=== PATIENT | male | born 1945 | race Caucasian/White ===

== ENCOUNTER → 2016-07-24 | Outpatient (CLI) | payer MEDICARE ==
[2016-07-24 09:32] LABS: Basophils % (A) 1 %; CH 32.6; CHCM 34.5; Eosinophils # (A) 0.2 k/uL (0-0.7); Eosinophils % (A) 2 %; HCT 43.2 % (39.0-53.0); HDW 2.94; HGB 14.5 gm/dL (13.0-17.5); Luc # (Auto) 0.22; Luc % (Auto) 3; Lymphocytes # (A) 1.6 k/uL (1.0-4.8); Lymphocytes % (A) 23 %; MCHC 33.7 g/dL (31.0-37.0); MCV 94.9 fL (80.0-100.0); Monocytes # (A) 0.5 k/uL (0-1.0); Monocytes % (A) 7 %; Neutrophils # (A) 4.3 k/uL (1.3-7.7); Neutrophils % (A) 63 %; RBC 4.55 m/uL (4.30-5.90); RDW 13.3 % (11.5-15.5); WBC 6.8 k/uL (3.8-10.6); WBC (Perox) 7.13
[2016-07-24 10:55] LABS: ALT 42 U/L (21-72); AST 34 U/L (17-59); Alkaline Phosphatase 66 U/L (38-126); Anion Gap 11 mmol/L; Blood Urea Nitrogen 23 mg/dL (9-20); Calcium 9.3 mg/dL (8.4-10.2); Carbon Dioxide 27 mmol/L (22-30); Chloride 104 mmol/L (98-107); Cholesterol 169 mg/dL (<200); Glucose 109 mg/dL (74-99); HDL Cholesterol 65 mg/dL (40-60); Non-African American GFR(MDRD) >60 (>60 ml/min/1.73 sqM); Potassium 3.8 mmol/L (3.5-5.1); Sodium 142 mmol/L (137-145); Total Bilirubin 1.2 mg/dL (0.2-1.3); Total Protein 7.3 g/dL (6.3-8.2); Triglycerides 87 mg/dL (<150)
== END | disposition home or self-care (01) ==
LOC: LABWHC1 08:37
PROVIDERS: ATTEND Internal Medicine
DX: E78.2 Mixed hyperlipidemia (principal); I10 Essential (primary) hypertension; Z12.5 Encounter for screening for malignant neoplasm of prostate
CPT/HCPCS: 80061; 80053; 85025; 36415; G0103

== ENCOUNTER → 2017-01-16 | Outpatient (CLI) | payer MEDICARE ==
[2017-01-16 08:18] LABS: Basophils % (A) 1 %; CH 32.5; CHCM 34.7; Eosinophils # (A) 0.3 k/uL (0-0.7); Eosinophils % (A) 3 %; HCT 41.7 % (39.0-53.0); HDW 2.84; HGB 14.2 gm/dL (13.0-17.5); Luc # (Auto) 0.19; Luc % (Auto) 2; Lymphocytes # (A) 1.9 k/uL (1.0-4.8); Lymphocytes % (A) 23 %; MCH 32.1 pg (25.0-35.0); MCHC 34.1 g/dL (31.0-37.0); MCV 94.1 fL (80.0-100.0); Mean Platelet Volume 7.7; Monocytes # (A) 0.6 k/uL (0-1.0); Monocytes % (A) 8 %; Neutrophils # (A) 5.2 k/uL (1.3-7.7); Neutrophils % (A) 63 %; RBC 4.44 m/uL (4.30-5.90); RDW 13.8 % (11.5-15.5); WBC 8.3 k/uL (3.8-10.6); WBC (Perox) 7.67
[2017-01-16 10:12] LABS: ALT 35 U/L (21-72); AST 25 U/L (17-59); Alkaline Phosphatase 67 U/L (38-126); Anion Gap 10 mmol/L; Blood Urea Nitrogen 26 mg/dL (9-20); Calcium 9.4 mg/dL (8.4-10.2); Carbon Dioxide 28 mmol/L (22-30); Chloride 104 mmol/L (98-107); Cholesterol 169 mg/dL (<200); Glucose 105 mg/dL (74-99); HDL Cholesterol 55 mg/dL (40-60); Non-African American GFR(MDRD) >60 (>60 ml/min/1.73 sqM); Potassium 3.6 mmol/L (3.5-5.1); Sodium 142 mmol/L (137-145); Total Bilirubin 0.6 mg/dL (0.2-1.3); Total Protein 6.8 g/dL (6.3-8.2); Triglycerides 123 mg/dL (<150)
[2017-01-16 11:37] LABS: Hemoglobin A1C 6.1 % (4.2-6.1)
== END | disposition home or self-care (01) ==
LOC: LABWHC1 06:48
PROVIDERS: ATTEND Internal Medicine
DX: I10 Essential (primary) hypertension (principal); E78.2 Mixed hyperlipidemia; R73.01 Impaired fasting glucose; Z12.5 Encounter for screening for malignant neoplasm of prostate
CPT/HCPCS: 80061; 80053; 83036; 85025; 36415; G0103

== ENCOUNTER → 2017-07-24 | Outpatient (CLI) | payer MEDICARE ==
[2017-07-24 07:32] LABS: ALT 31 U/L (21-72); AST 29 U/L (17-59); Albumin 4.1 g/dL (3.5-5.0); Alkaline Phosphatase 77 U/L (38-126); Anion Gap 9 mmol/L; Blood Urea Nitrogen 18 mg/dL (9-20); Calcium 9.5 mg/dL (8.4-10.2); Carbon Dioxide 34 mmol/L (22-30); Chloride 100 mmol/L (98-107); Cholesterol 170 mg/dL (<200); Glucose 108 mg/dL (74-99); HDL Cholesterol 53 mg/dL (40-60); LDL Cholesterol,Calculated 98 mg/dL (0-99); Potassium 3.8 mmol/L (3.5-5.1); Sodium 143 mmol/L (137-145); Total Bilirubin 0.7 mg/dL (0.2-1.3); Total Protein 7.2 g/dL (6.3-8.2); Triglycerides 96 mg/dL (<150)
== END | disposition home or self-care (01) ==
LOC: LABWHC1 06:48
PROVIDERS: ATTEND Internal Medicine
DX: E78.2 Mixed hyperlipidemia (principal); I10 Essential (primary) hypertension
CPT/HCPCS: 36415; 80053; 80061

== ENCOUNTER 2023-04-27 02:01 | Inpatient (IN) | payer MEDICARE ==
--- NOTE | 2023-04-27 02:13 | ED ---
Chest Pain HPI - General Chief Complaint: Chest Pain Stated Complaint: Chest Pain Time Seen by Provider: 04/27/23 02:12 Source: family, RN notes reviewed, old records reviewed Mode of arrival: ambulatory Limitations: no limitations - History of Present Illness Initial Comments: This is a 78-year-old male to the emergency department for evaluation. Patient has history of high blood pressure high cholesterol, patient comes in for evaluation of chest pain today. Patient has had episodic chest pain but this is been more persistent tonight. No shortness of breath no other significant symptoms or complaints. Patient is nursing travel history or sick contacts. He does feel weak and dizzy with persistent chest pain here in the ER at times feels like he is having some sweating episode MD Complaint: chest pain -: hour(s) Pain Location: substernal, left chest Pain Radiation: none Severity: moderate Severity scale (1-10): 4 Quality: tightness, heaviness Consistency: intermittent Improves With: nothing Worsens With: nothing Anginal Symptoms: dyspnea, sense of impending doom Other Symptoms: palpitations Treatments Prior to Arrival: none - Related Data Home Medications Medication Instructions Recorded Confirmed Aspirin 81 mg PO DAILY 02/07/14 04/27/23 Multivitamin [Men's Multi-Vitamin] 1 tab PO DAILY 02/07/14 04/27/23 Rosuvastatin [Crestor] 20 mg PO DAILY 04/27/23 04/27/23 Previous Rx's Medication Instructions Recorded Apixaban [Eliquis] 5 mg PO BID #60 tab 04/29/23 Clopidogrel [Plavix] 75 mg PO DAILY #90 tab 04/29/23 Metoprolol Tartrate [Lopressor] 25 mg PO BID #60 tab 04/29/23 Nitroglycerin Sl Tabs [Nitrostat] 0.4 mg SUBLINGUAL Q5M PRN #100 tab 04/29/23 Allergies Allergy/AdvReac Type Severity Reaction Status Date / Time No Known Allergies Allergy Verified 04/27/23 07:00 Review of Systems ROS Statement: Those systems with pertinent positive or pertinent negative responses have been documented in the HPI. ROS Other: All systems not noted in ROS Statement are negative. Past Medical History Past Medical History: Hyperlipidemia, Hypertension History of Any Multi-Drug Resistant Organisms: None Reported Past Surgical History: Cholecystectomy Past Anesthesia/Blood Transfusion Reactions: No Reported Reaction Past Psychological History: No Psychological Hx Reported Smoking Status: Never smoker Past Alcohol Use History: Rare Past Drug Use History: None Reported General Exam Limitations: no limitations General appearance: alert, in no apparent distress, anxious Head exam: Present: atraumatic, normocephalic, normal inspection Eye exam: Present: normal appearance, PERRL, EOMI. Absent: scleral icterus, conjunctival injection, periorbital swelling ENT exam: Present: normal exam, mucous membranes moist Neck exam: Present: normal inspection. Absent: tenderness, meningismus, lymphadenopathy Respiratory exam: Present: normal lung sounds bilaterally. Absent: respiratory distress, wheezes, rales, rhonchi, stridor Cardiovascular Exam: Present: regular rate, normal rhythm, normal heart sounds. Absent: systolic murmur, diastolic murmur, rubs, gallop, clicks GI/Abdominal exam: Present: soft, normal bowel sounds. Absent: distended, tenderness, guarding, rebound, rigid Extremities exam: Present: normal inspection, full ROM, normal capillary refill. Absent: tenderness, pedal edema, joint swelling, calf tenderness Back exam: Present: normal inspection Neurological exam: Present: alert, oriented X3, CN II-XII intact Psychiatric exam: Present: normal affect, normal mood Skin exam: Present: warm, dry, intact, normal color. Absent: rash Course Vital Signs 04/27/23 04/27/23 04/27/23 02:05 02:25 03:02 Temperature 98.6 F Pulse Rate 94 87 82 Respiratory 20 18 18 Rate Blood Pressure 161/76 132/70 131/65 O2 Sat by Pulse 96 97 93 L Oximetry 04/27/23 04/27/23 04/27/23 04:00 05:15 08:31 Temperature Pulse Rate 80 78 78 Respiratory 18 16 18 Rate Blood Pressure 135/69 128/62 127/72 O2 Sat by Pulse 93 L 95 99 Oximetry - Reevaluation(s) Reevaluation #1: 04/27/23 05:45 Medical record is reviewed Reevaluation #2: 04/27/23 05:45 Patient symptoms remain, patient still having episodic chest pain Patient did have increasing dizziness and lightheadedness and near-syncope, at that time he was diaphoretic here in the ER Reevaluation #3: 04/27/23 05:45 Patient informed results and questions answered 04/27/23 06:51 Studies Chest x-ray and CT chest interpreted by me is negative for acute disease Reevaluation #4: 04/27/23 04:54 Was pt. sent in by a medical professional or institution (BRANDNO Garíca, ACTIVITY MANAGER, urgent care, hospital, or shelter...) When possible be specific @ -no Did you speak to anyone other than the patient for history (EMS, parent, family, police, friend...)? What history was obtained from this source @ -no Did you review nursing and triage notes (agree or disagree)? Why? @ -agree Are old charts reviewed (outside hosp., previous admission, EMS record, old EKG, old radiological studies, urgent care reports/EKG's, shelter records)? Report findings @ -yes Differential Diagnosis (chest pain, altered mental status, abdominal pain women, abdominal pain men, vaginal bleeding, weakness, fever, dyspnea, syncope, headache, dizziness, GI bleed, back pain, seizure, CVA, palpatations, mental health, musculoskeletal)? @ -prior EKG interpreted by me (3pts min.). @ -yes X-rays interpreted by me (1pt min.). @ -yes CT interpreted by me (1pt min.). @ -yes U/S interpreted by me (1pt. min.). @ -no What testing was considered but not performed or refused? (CT, X-rays, U/S, labs)? Why? @ -none What meds were considered but not given or refused? Why? @ -none Did you discuss the management of the patient with other professionals (professionals i.e. BRANDON García, ACTIVITY MANAGER, lab, RT, psych nurse, social science teacher, video game designer, teacher, contracts officer, watch caser)? Give summary @ -no Was smoking cessation discussed for >3mins.? @ -no Was critical care preformed (if so, how long)? @ -yes31 Were there social determinants of health that impacted care today? How? (Homelessness, low income, unemployed, alcoholism, drug addiction, transportation, low edu. Level, literacy, decrease access to med. care, halfway, rehab)? @ -none Was there de-escalation of care discussed even if they declined (Discuss DNR or withdrawal of care, Hospice)? DNR status @ -no What co-morbidities impacted this encounter? (DM, HTN, Smoking, COPD, CAD, Cancer, CVA, ARF, Chemo, Hep., AIDS, mental health diagnosis, sleep apnea, morbid obesity)? @ -none Was patient admitted / discharged? Hospital course, mention meds given and route, prescriptions, significant lab abnormalities, going to OR and other pertinent info. @ - 78 male to the emergency department for evaluation of chest pain with a near syncopal event. Patient has normal imaging and testing here in the ER and can will be admitted for cardiology evaluation. Patient did have a near syncope episode with changing chest pain character here in the ER but normal labs and EKGs here in the ER Admitted Undiagnosed new problem with uncertain prognosis? @ -no Drug Therapy requiring intensive monitoring for toxicity (Heparin, Nitro, Insulin, Cardizem)? @ -no Were any procedures done? @ -no Diagnosis/symptom? @ -Chest pain Acute, or Chronic, or Acute on Chronic? @ -Acute Uncomplicated (without systemic symptoms) or Complicated (systemic symptoms)? @ -Complicated Side effects of treatment? @ -no Exacerbation, Progression, or Severe Exacerbation? @ -exacerbation Poses a threat to life or bodily function? How? (Chest pain, [place], [place], pneumonia, PE, COPD, DKA, ARF, appy, cholecystitis, CVA, Diverticulitis, Homicidal, Suicidal, threat to staff... and all critical care pts) @ -yes possibility of acute coronary syndrome Reevaluation #5: 04/27/23 04:54 Differential Chest Pain: Stable Angina, Unstable Angina, STEMI, NSTEMI Aortic Dissection, Pneumothorax, Musculoskeletal, Esophageal Spasm GERD, Cholecystitis, Pancreatitis, Zoster, this is not meant to be an all-inclusive list. - Consultations Consultation #1: Spoke with nai who agrees to admit this patient Chest Pain MDM - MDM 78 male to the emergency department for evaluation of chest pain with a near syncopal event. Patient has normal imaging and testing here in the ER and can will be admitted for cardiology evaluation. Patient did have a near syncope episode with changing chest pain character here in the ER but normal labs and EKGs here in the ER Critical Care Time Critical Care Time: Yes Total Critical Care Time: 31 Disposition Clinical Impression: Chest pain, Near syncope Disposition: ADMITTED IP TO THIS HOSP Condition: Undetermined Is patient prescribed a controlled substance at d/c from ED?: No Time of Disposition: 06:30
[2023-04-27 03:01] LABS: Basophils % (A) 0 %; Eosinophils # (A) 0.2 k/uL (0-0.7); Eosinophils % (A) 1 %; HCT 42.4 % (39.0-53.0); HGB 14.8 gm/dL (13.0-17.5); Lymphocytes # (A) 2.1 k/uL (1.0-4.8); Lymphocytes % (A) 15 %; MCH 32.4 pg (25.0-35.0); MCHC 34.9 g/dL (31.0-37.0); MCV 92.9 fL (80.0-100.0); Mean Platelet Volume 8.3; Monocytes # (A) 1.2 k/uL (0-1.0); Monocytes % (A) 8 %; Neutrophils # (A) 10.3 k/uL (1.3-7.7); Neutrophils % (A) 73 %; Platelet Count 189 k/uL (150-450); RBC 4.56 m/uL (4.30-5.90); RDW 13.5 % (11.5-15.5); WBC 14.1 k/uL (3.8-10.6)
[2023-04-27 03:14] LABS: Partial Thromboplastin Time 24.1 sec (22.0-30.0)
[2023-04-27 04:39] LABS: ALT 26 U/L (4-49); AST 37 U/L (17-59); African American GFR (CKD) 84 (>60 ml/min/1.73 sqM); Albumin 4.5 g/dL (3.5-5.0); Alkaline Phosphatase 64 U/L (38-126); Anion Gap 15 mmol/L; Blood Urea Nitrogen 26 mg/dL (9-20); Calcium 9.7 mg/dL (8.4-10.2); Carbon Dioxide 24 mmol/L (22-30); Chloride 99 mmol/L (98-107); Glucose 126 mg/dL (74-99); Magnesium 1.8 mg/dL (1.6-2.3); Non-African American GFR(CKD) 72 (>60 ml/min/1.73 sqM); Potassium 2.8 mmol/L (3.5-5.1); Sodium 138 mmol/L (137-145); Total Bilirubin 1.3 mg/dL (0.2-1.3); Total Protein 7.9 g/dL (6.3-8.2)
[2023-04-27 04:47] LABS: NT-Pro-B-Type Natriuretic Pept 135 pg/mL
--- NOTE | 2023-04-27 05:24 | XR ---
EXAM: XR Chest, 2 Views CLINICAL HISTORY: : Chest Pain TECHNIQUE: Frontal and lateral views of the chest. COMPARISON: No relevant prior studies available. FINDINGS: Lungs: Unremarkable. No infiltration, atelectasis or mass density. Pleural space: Unremarkable. No pneumothorax. No pleural fluid. Heart: Unremarkable. No cardiomegaly. Mediastinum: Unremarkable. Bones/joints: Unremarkable. No acute abnormalities. IMPRESSION: Negative chest x-rays.
[2023-04-27] MEDS ORDERED: ASPIRIN 81 MG PO STA (06:35)
[2023-04-27] MEDS ORDERED: NITROGLYCERIN SL TABS 0.4 MG TAB SUBLINGUAL PRN ×3 (06:35→09:58)
[2023-04-27] MEDS ORDERED: MORPHINE SULFATE 4 MG/ML SYRINGE IV PRN (06:35)
[2023-04-27] MEDS ORDERED: POTASSIUM BICARBONATE/CIT AC 20 MEQ TABLET.EFF PO ONE ×2 (06:41→10:30)
--- NOTE | 2023-04-27 06:43 | CT ---
EXAM: CT Angiography Chest With Intravenous Contrast CLINICAL HISTORY: PE TECHNIQUE: Axial computed tomographic angiography images of the chest with intravenous contrast. CTDI is 28.97 mGy and DLP is 401 mGy-cm. This CT exam was performed using one or more of the following dose reduction techniques: automated exposure control, adjustment of the mA and/or kV according to patient size, and/or use of iterative reconstruction technique. MIP reconstructed images were created and reviewed. COMPARISON: No relevant prior studies available. FINDINGS: Pulmonary arteries: Unremarkable. No pulmonary embolism. Aorta: No acute findings. No thoracic aortic aneurysm. Lungs: Mild areas of subsegmental atelectasis in the right lower lobe. The lungs are otherwise clear. No mass. Pleural space: Unremarkable. No significant effusion. No pneumothorax. Heart: Unremarkable. No cardiomegaly. No significant pericardial effusion. No evidence of RV dysfunction. Mediastinum: Small hiatus hernia. Bones/joints: No acute fracture. No dislocation. Soft tissues: Unremarkable. Lymph nodes: Unremarkable. No enlarged lymph nodes. IMPRESSION: No acute findings in the visualized arteries of the chest. No pulmonary emboli.
[2023-04-27] MEDS ORDERED: HEPARIN SODIUM,PORCINE (1 ML) 2,500 UNIT in SODIUM CHLORIDE 0.9% 250 ML IRRIGATION PRN (07:00)
[2023-04-27] MEDS ORDERED: HEPARIN SODIUM,PORCINE 10,000 UNIT in SODIUM CHLORIDE 0.9% 1,000 ML IRRIGATION PRN (07:00)
[2023-04-27] MEDS ORDERED: ACETAMINOPHEN TAB 500 MG TAB PO STA (07:08)
[2023-04-27] MEDS ORDERED: POTASSIUM CHLORIDE 20 MEQ in WATER FOR INJECTION 1 100ML.BAG IVPB STA (07:25)
[2023-04-27] MEDS ORDERED: HYDROcodone/APAP 5-325MG 1 EACH TAB PO PRN (07:53)
[2023-04-27] MEDS ORDERED: CALCIUM CARBONATE 500 MG CHEWABLE PO PRN (07:53)
[2023-04-27] MEDS ORDERED: MELATONIN 3 MG TABLET PO PRN (07:53)
[2023-04-27] MEDS ORDERED: ACETAMINOPHEN TAB 325 MG TAB PO PRN (07:53)
[2023-04-27] MEDS ORDERED: ONDANSETRON 4 MG/2 ML VIAL IVP PRN (07:53)
[2023-04-27] MEDS ORDERED: NALOXONE 0.4 MG/ML 1 ML VIAL IVP PRN (07:53)
--- NOTE | 2023-04-27 07:59 | P.HPIM ---
History of Present Illness H&P Date: 04/27/23 Patient is a 78-year-old male with a history of hypertension and dyslipidemia who presented to the emergency department with complaints of chest pain. In the emergency department he underwent an extensive evaluation. On arrival he was hypertensive with a blood pressure 161/76. Labs in the emergency department included CBC, coags, d-dimer, BMP, liver enzymes, magnesium, troponin, and B and P which are remarkable for potassium 2.8, BUN 26, glucose 126, magnesium 1.8. Initial troponin was negative at less than 0.012. Chest x-ray showed no acute process. CT of the chest revealed no pulmonary embolism. He was given a dose of aspiring and tylenol and arrangements were made for admission. Patient seen and examined at bedside. Retrosternal chest pain with some radiation into the neck, no shortness of breath, no radiation into the arms, no nausea, no shortness of breath, no nausea. Chest pain started at 5 pm last night, he was unable to sleep due to the pain. Pain was constant from 5 pm until received tylenol given here. Today in the ED he was relaxing and then got a little woozy, and diaphoretic, he was still having chest pain at that time. Stress test in the past about 6-7 years ago. No hx of heart cath. His dad at 48 with a heart attack. No other family hx of heart disease. He works out 3 times weekly a [email or web address] without chest pain. Does not use a cane or a walker. Vital signs reviewed General: nontoxic, no distress, appears at stated age Derm: warm, dry Eyes: EOMI, no lid lag, anicteric sclera, pupils equal round reactive to light ENT: Nose and ears atraumatic, no thrush, no pharyngeal erythema Cardiovascular: S1S2 reg, no murmur, positive posterior tibial pulse bilateral, no edema Lungs: clear to auscultation bilateral, no rhonchi, no rales, no wheeze, no accessory muscle use Abdominal: soft, nontender to palpation, no guarding, no appreciable organomegaly, normal bowel sounds Ext: no gross muscle atrophy, muscle strength 5 out of 5 in all 4 extremities, no contractures Neuro: CN II-XII grossly intact, no focal neuro deficits, Psych: Alert, oriented, appropriate affect Assessment/Plan: Chest pain with abnormal EKG HTN HLD - Trend Troponin - ASA 82 mg daily, crestor 20 mg daily - tele - await cardio consult - hold atenolol/chlortahidone this AM incase stress test is indicated - NPO until seen by cardio, discussed with nursing. Hypokalemia Hypomagnesemia - K-lyte 40 mEQ PO X 2, Potassium Chloride 20 mEq IV X 1 - Magnesium sulfate 2 g IVPB - repeat BMP at 1300 and in AM Imaging: EKG Initial -normal sinus rhythm at a rate of 90 normal access, normal intervals significant ST segment depression in V3 through V6, leads II.III, aVF EKG most recent- normal sinus rhythm at a rate of 63, normal axis, normal intervals, no significant ST-T wave changes And as per HPI Data Review: As per HPI The patient is placed in observation with an anticipated less than 2 midnight stay for evaluation of Chest Pain. Surrogate decision-maker: DVT prophylaxis: SCDs Discussed with: Nursing Anticipated discharge date: Pending Clinical Course Anticipated discharge place: Pending Clinical Course This dictation was prepared using [employer] voice recognition software. Though every attempt is made to correct errors during dictation some may still exist. Past Medical History Past Medical History: Hyperlipidemia, Hypertension History of Any Multi-Drug Resistant Organisms: None Reported Past Surgical History: Cholecystectomy Past Anesthesia/Blood Transfusion Reactions: No Reported Reaction Past Psychological History: No Psychological Hx Reported Smoking Status: Former smoker (quit before 1999) Past Alcohol Use History: Rare Past Drug Use History: None Reported Medications and Allergies Home Medications Medication Instructions Recorded Confirmed Type Aspirin 81 mg PO DAILY 02/07/14 04/27/23 History Multivitamin [Men's Multi-Vitamin] 1 tab PO DAILY 02/07/14 04/27/23 History Atenolol/Chlorthalidone 1 tab PO DAILY 04/27/23 04/27/23 History [Atenolol/Chlorthalidone 50-25] Rosuvastatin [Crestor] 20 mg PO DAILY 04/27/23 04/27/23 History Allergies Allergy/AdvReac Type Severity Reaction Status Date / Time No Known Allergies Allergy Verified 04/27/23 07:00 Physical Exam Osteopathic Statement: *. No significant issues noted on an osteopathic structural exam other than those noted in the History and Physical/Consult. Vitals: Vital Signs Temp Pulse Resp BP Pulse Ox 04/27/23 05:15 78 16 128/62 95 04/27/23 04:00 80 18 135/69 93 L 04/27/23 03:02 82 18 131/65 93 L 04/27/23 02:25 87 18 132/70 97 04/27/23 02:05 98.6 F 94 20 161/76 96 Intake and Output 04/26/23 04/27/23 04/27/23 22:59 06:59 14:59 Other: Weight 94.801 kg Results CBC & Chem 7: 04/27/23 02:30 04/27/23 02:30 Labs: Abnormal Lab Results - Last 24 Hours (Table) 04/27/23 04/27/23 Range/Units 02:30 02:30 WBC 14.1 H (3.8-10.6) k/uL Neutrophils # 10.3 H (1.3-7.7) k/uL Monocytes # 1.2 H (0-1.0) k/uL Potassium 2.8 L (3.5-5.1) mmol/L BUN 26 H (9-20) mg/dL Glucose 126 H (74-99) mg/dL
[2023-04-27] MEDS ORDERED: ATORVASTATIN 80 MG TAB PO STA (08:15)
[2023-04-27] MEDS ORDERED: ALPRAZolam 0.5 MG TAB PO PRN (08:15)
[2023-04-27] MEDS ORDERED: ASPIRIN 325 MG TAB PO STA (08:15)
[2023-04-27] MEDS ORDERED: ALPRAZolam 0.25 MG TAB PO PRN (08:15)
[2023-04-27] MEDS: SODIUM CHLORIDE 0.9% 1,000 ML IV SCH ×2 (08:25→23:26)
[2023-04-27] MEDS: ATORVASTATIN 40 MG TAB PO SCH (08:27)
--- NOTE | 2023-04-27 08:29 | P.CRDCN ---
History of Present Illness Consult date: 04/27/23 History of present illness: History of Present Illness: The patient is a 78-year-old male with a known history of hypertension, hyperlipidemia and prior history of possible mitral valve prolapse who presented with symptoms of chest discomfort. The discomfort started yesterday at work, persisted was not associated with any other symptoms of dyspnea or dizziness but radiated to the neck. Is usually active physically has no exertional chest discomfort. He denies any dizziness, palpitations or syncope. He has no history of PND, orthopnea or peripheral edema. He is a nonsmoker. He has no history of obstructive CAD but no recent cardiac workup. He has a history of hypertension, hyperlipidemia and prediabetic. In the emergency room his troponin showed no abnormalities. Medications: Atenolol chlorthalidone 5025 milligrams daily, Crestor 20 mg daily, aspirin once a day Review of Systems: Respiratory: No history of asthma, bronchitis or recent cough. GI: No nausea or vomiting . No history of peptic ulcer disease. No recent GI bleed. : No hematuria or dysuria. Nervous System: No stroke or seizure. Physical Examination: 78-year-old male, alert and oriented no apparent distress ,Blood pressure 128/60, Heart rate 70 Head: Normocephalic. Eyes: Sclerae nonicteric. Neck: Good carotid upstroke, no bruit, no jugular venous distention. Lungs: Clear to auscultation. Heart: Regular rate and rhythm, S1-S2, no S3, no rub. Systolic ejection murmur. Abdomen: Soft nontender, positive bowel sounds no organomegaly. Extremities: No edema, intact distal pulses. Labs: Hemoglobin 14.8, WBC 14.1, potassium 2.8, BUN 26, creatinine 1.0. Troponin less than 0.012. NT proBNP 135. Chest x-ray with no infiltrate. CT angiogram of the chest with no evidence of embolic phenomenon EKG: EKG sinus mechanism with ST segment depression in the inferolateral leads that resolved on the EKG done later Impression: 1. Chest discomfort with dynamic ST segment depression and no evidence of enzymatic changes, suggestive of ischemic symptoms 2. History of hypertension 3. History of hyperlipidemia 4. And borderline diabetes Plan: 1. Resume beta heide and statin 2. Replace potassium 3. Obtain an echocardiogram with Doppler 4. Have recommended to proceed with coronary angiography to assess his status and guide his treatment, the risks and the complications were discussed with the patient and his family 5. Depending on the results of his testing further recommendations will be made, thank you for this consult we will follow with you. Past Medical History Past Medical History: Hyperlipidemia, Hypertension History of Any Multi-Drug Resistant Organisms: None Reported Past Surgical History: Cholecystectomy Past Anesthesia/Blood Transfusion Reactions: No Reported Reaction Past Psychological History: No Psychological Hx Reported Smoking Status: Former smoker (quit before 1999) Past Alcohol Use History: Rare Past Drug Use History: None Reported Medications and Allergies Home Medications Medication Instructions Recorded Confirmed Type Aspirin 81 mg PO DAILY 02/07/14 04/27/23 History Multivitamin [Men's Multi-Vitamin] 1 tab PO DAILY 02/07/14 04/27/23 History Atenolol/Chlorthalidone 1 tab PO DAILY 04/27/23 04/27/23 History [Atenolol/Chlorthalidone 50-25] Rosuvastatin [Crestor] 20 mg PO DAILY 04/27/23 04/27/23 History Allergies Allergy/AdvReac Type Severity Reaction Status Date / Time No Known Allergies Allergy Verified 04/27/23 07:00 Physical Exam Vitals: Vital Signs Temp Pulse Resp BP Pulse Ox 04/27/23 05:15 78 16 128/62 95 04/27/23 04:00 80 18 135/69 93 L 04/27/23 03:02 82 18 131/65 93 L 04/27/23 02:25 87 18 132/70 97 04/27/23 02:05 98.6 F 94 20 161/76 96 Intake and Output 04/26/23 04/27/23 04/27/23 22:59 06:59 14:59 Other: Weight 94.801 kg Results 04/27/23 02:30 04/27/23 02:30 Cardiac Enzymes 04/27/23 04/27/23 04/27/23 Range/Units 02:30 02:30 07:16 AST 37 (17-59) U/L Troponin I <0.012 <0.012 (0.000-0.034) ng/mL Coagulation 04/27/23 Range/Units 02:30 PT 11.0 (10.0-12.5) sec APTT 24.1 (22.0-30.0) sec CBC 04/27/23 Range/Units 02:30 WBC 14.1 H (3.8-10.6) k/uL RBC 4.56 (4.30-5.90) m/uL Hgb 14.8 (13.0-17.5) gm/dL Hct 42.4 (39.0-53.0) % Plt Count 189 (150-450) k/uL Comprehensive Metabolic Panel 04/27/23 Range/Units 02:30 Sodium 138 (137-145) mmol/L Potassium 2.8 L (3.5-5.1) mmol/L Chloride 99 (98-107) mmol/L Carbon Dioxide 24 (22-30) mmol/L BUN 26 H (9-20) mg/dL Creatinine 1.00 (0.66-1.25) mg/dL Glucose 126 H (74-99) mg/dL Calcium 9.7 (8.4-10.2) mg/dL AST 37 (17-59) U/L ALT 26 (4-49) U/L Alkaline Phosphatase 64 (38-126) U/L Total Protein 7.9 (6.3-8.2) g/dL Albumin 4.5 (3.5-5.0) g/dL Current Medications Generic Name Dose Route Start Last Admin Trade Name Freq PRN Reason Stop Dose Admin Acetaminophen 650 mg 04/27/23 07:53 Acetaminophen Tab 325 Mg Tab PO Q6HR PRN Mild Pain or Fever > 100.5 Hydrocodone Bitart/Acetaminophen 1 each 04/27/23 07:53 Hydrocodone/Apap 5-325mg 1 Each Tab PO Q4HR PRN Moderate Pain (Scale 4 to 6) Alprazolam 0.25 mg 04/27/23 08:15 Alprazolam 0.25 Mg Tab PO Q6HR PRN Mild Anxiety Alprazolam 0.5 mg 04/27/23 08:15 Alprazolam 0.5 Mg Tab PO Q6HR PRN Moderate Anxiety Aspirin 81 mg 04/28/23 09:00 Aspirin 81 Mg PO DAILY [facility] Atorvastatin Calcium 40 mg 04/27/23 09:00 Atorvastatin 40 Mg Tab PO DAILY SOFIA Calcium Carbonate/Glycine 1,000 mg 04/27/23 07:53 Calcium Carbonate 500 Mg Chewable PO Q4HR PRN Dyspepsia Potassium Chloride 20 meq/ IV 100 mls @ 50 mls/hr 04/27/23 07:25 04/27/23 07:56 Solution IVPB 04/27/23 09:24 50 mls/hr ONCE STA Administration Magnesium Sulfate/Dextrose 1 100 mls @ 100 mls/hr 04/27/23 08:00 gm/ IV Solution IVPB 04/27/23 09:59 Q1H SOFIA Sodium Chloride 1,000 mls @ 75 mls/hr 04/27/23 08:15 Saline 0.9% IV .[id number] [facility] Heparin Sodium (Porcine) 10, 1,001 mls @ 999 mls/hr 04/27/23 07:00 000 unit/ Sodium Chloride IRRIGATION 04/27/23 23:00 ONCE PRN INTRA-OP Heparin Sodium (Porcine) 2,500 250.5 mls @ 250 mls/hr 04/27/23 07:00 unit/ Sodium Chloride IRRIGATION 04/27/23 23:00 ONCE PRN INTRA-OP Melatonin 3 mg 04/27/23 07:53 Melatonin 3 Mg Tablet PO HS PRN Insomnia Metoprolol Tartrate 25 mg 04/27/23 09:00 Metoprolol Tartrate 25 Mg Tab PO BID [facility] Morphine Sulfate 4 mg 04/27/23 06:35 Morphine Sulfate 4 Mg/Ml Syringe IV Q4HR PRN Chest Pain Naloxone HCl 0.2 mg 04/27/23 07:53 Naloxone 0.4 Mg/Ml 1 Ml Vial IVP Q2M PRN Opioid Reversal Nitroglycerin 0.4 mg 04/27/23 06:35 Nitroglycerin Sl Tabs 0.4 Mg Tab SUBLINGUAL Q5M PRN Chest Pain Ondansetron HCl 4 mg 04/27/23 07:53 Ondansetron 4 Mg/2 Ml Vial IVP Q8HR PRN Nausea And Vomiting Potassium Bicarbonate 40 meq 04/27/23 10:30 Potassium Bicarbonate/Cit Ac 20 Meq Tablet.Eff PO 04/27/23 10:31 ONCE ONE Intake and Output 04/26/23 04/27/23 04/27/23 22:59 06:59 14:59 Other: Weight 94.801 kg 04/27/23 02:30 04/27/23 02:30
[2023-04-27] MEDS: METOPROLOL TARTRATE 25 MG TAB PO SCH ×2 (08:30→20:11)
[2023-04-27] MEDS ORDERED: fentaNYL (PF) 50 MCG/ML 2 ML AMP ONE (08:53)
[2023-04-27] MEDS ORDERED: fentaNYL (PF) 50 MCG/1 ML VIAL IVP ONE (09:05)
[2023-04-27] MEDS ORDERED: LIDOCAINE 1% INJ 10MG/ML (20 ML MDV) SQ ONE (09:06)
[2023-04-27] MEDS ORDERED: IV FLUID CONTINUATION 1,000 ML IV ONE (09:06)
[2023-04-27] MEDS ORDERED: VERAPAMIL SYRINGE (5 MG/10 ML) INTRAARTER ONE (09:09)
[2023-04-27] MEDS ORDERED: HEPARIN SODIUM 1,000 UN/ML (10ML VL) ONE (09:11)
[2023-04-27] MEDS: HEPARIN SODIUM 1,000 UN/ML (10ML VL) IV ONE ×2 (09:12→09:18)
[2023-04-27] MEDS ORDERED: CLOPIDOGREL 75 MG TAB PO ONE (09:20)
[2023-04-27] MEDS ORDERED: CLOPIDOGREL 75 MG TAB ONE (09:20)
[2023-04-27] MEDS ORDERED: IOPAMIDOL-370 100ML BTL INJ ONE (09:50)
[2023-04-27] MEDS ORDERED: ZOLPIDEM 5 MG TAB PO PRN (09:58)
[2023-04-27] MEDS ORDERED: RX INFO: IV CONTRAST WAS GIVEN 1 EACH MISC MISCELLANE PRN (09:58)
[2023-04-27] MEDS ORDERED: MAG HYDROX/AL HYDROX/SIMETH 30 ML CUP PO PRN (09:58)
[2023-04-27] MEDS ORDERED: ATROPINE SULFATE 0.1 MG/ML 10ML SYRINGE IV PRN (09:58)
[2023-04-27] MEDS ORDERED: SODIUM CHLORIDE 0.9% 1,000 ML in EMPTY BAG 1 BAG IV SCH (10:00)
[2023-04-27] MEDS: MAGNESIUM SULFATE-D5W PMX 1 GM in DEXTROSE/WATER 1 100ML.BAG IVPB SCH ×2 (10:25→11:39)
--- NOTE | 2023-04-27 10:27 | P.CARDCATH ---
Date of Procedure: 04/27/23 Description of Procedure: Cardiac Catheterization: The patient is a 78-year-old male with a known history of hypertension and hyperlipidemia who presented with symptoms of chest discomfort and had dynamic EKG changes but no troponin abnormalities. Recommendations were made regarding cardiac catheterization, the risks and the complications were discussed with the patient who is in full understanding and agreement. Procedure Description: Patient was brought to chemical lab technician in fasting semi-sedated state after receiving Fentanyl and Benadryl achieiving moderate conscious sedated state. Using Xylocaine Anesthesia and modified Seldinger technique, a 6-[place]izen [place] sheath was introduced in the right radial artery . Subsequently, selective coronary angiography was performed using a 5-[place]izen [place] 3.5 bend Carolynn catheter. Multiple views of the coronary artery including hemiaxial views were obtained. The 6-Citizen [place] pigtail catheter was used to cross the aortic valve and LVEDP was calculated. PCI: After removing the catheters a 6-Citizen [place] EBU 3.75 guiding catheter was introduced in the system subsequently a 0.014 BMW J-wire was positioned in the distal OM. A 2.5 x 12 mm Treck advanced and one inflation at 8 chichi was done, subsequently a [employer] eye IVUS catheter was advanced and imaging were obtained. After removing the catheter 3.25 X18 mm Xience bassem point stent was advanced and deployed at 16 chichi. Subsequently a 4.0 x 8 mm NC Treck was advanced and one inflation in the proximal segment of the stent at the same was done. After removing the wire admission were obtained and revealed stable successful stenting. Following that, catheter and sheath were removed. Hemostasis was obtained with deployment of vascular band . There was no immediate complication. Patient was returned to room in stable condition. Of note, the patient received a total of 8000 units of intravenous heparin as well as intra-arterial verapamil. He received a loading dose of clopidogrel. He had chest discomfort with the inflations that resolved at the end of the procedure. His ACT was monitored. Findings: Left main: This is a large size vessel, bifurcating into LAD and left circumflex, left main has no high-grade stenosis LAD: This is a large size vessel, reaching to the apex, giving rise to a moderately sized diagonal branch and mid segment. The right coronary artery in the midsegment is intimal disease of 30% involving the takeoff of the diagonal branch. There was no evidence of high-grade stenosis Left circumflex: This is a large nondominant vessel, giving rise to a large obtuse marginal branch. In the midsegment of the obtuse marginal branch it has a 95% stenosis. The rest of the vessel has no high-grade stenosis RCA: This is a large dominant vessel, bifurcating into PDA and PLV. The midright coronary artery has a 50% eccentric lesion, the rest of the vessel has no high-grade stenosis. Left Ventriculogram: Not performed Hemodynamics: There was no gradient across the aortic valve , LVEDP was 16-20 mmHg Conclusion: 1. Severe stenosis in the OM1 2. Mild disease in the mid LAD 3. Moderate disease in the mid RCA 4. Successful stenting of the OM1 with reduction of stenosis from 95% to 0% with intravascular ultrasound guidance. Recommendations: The patient will continue on aspirin and clopidogrel for 6 months without any interruption in addition to aggressive coronary risks modification and attempting to maintain LDL below 70 mg/dL. The right coronary artery territory will be evaluated down the road for the need for any intervention. The findings and the recommendations were discussed with the patient and the family and they were in full understanding and agreement. Duration of sedation is 39 minutes.
[2023-04-27 14:27] LABS: African American GFR (CKD) >90 (>60 ml/min/1.73 sqM); Anion Gap 9 mmol/L; Blood Urea Nitrogen 23 mg/dL (9-20); Carbon Dioxide 29 mmol/L (22-30); Chloride 99 mmol/L (98-107); Glucose 110 mg/dL (74-99); Non-African American GFR(CKD) 81 (>60 ml/min/1.73 sqM); Potassium 3.2 mmol/L (3.5-5.1); Sodium 137 mmol/L (137-145)
[2023-04-27] MEDS ORDERED: POTASSIUM CHLORIDE ER 20 MEQ TAB.ER PO STA (14:32)
[2023-04-28] MEDS ORDERED: HEPARIN SODIUM 1,000 UN/ML (10ML VL) IV ONE (01:07)
[2023-04-28] MEDS ORDERED: HEPARIN SODIUM 1,000 UN/ML (10ML VL) IV PRN (01:07)
[2023-04-28] MEDS ORDERED: HEPARIN SOD,PORK IN 0.45% NACL 25,000 UNIT in 0.45% NACL 1 250ML.BAG IV SCH (01:15)
[2023-04-28] MEDS ORDERED: DILTIAZEM DRIP BOLUS FROM BAG 1 MG SOLN IV ONE (01:30)
[2023-04-28] MEDS ORDERED: DILTIAZEM 125 MG in SODIUM CHLORIDE 0.9% 100 ML IV SCH (01:30)
[2023-04-28 02:29] LABS: INR 1.1 (<1.2); Partial Thromboplastin Time 26.5 sec (22.0-30.0)
--- NOTE | 2023-04-28 06:59 | CA ---
Transthoracic Echo Report Name: Luis Manuel Kerr Age: 78 Gender: M : 1945 Exam Date: 04/27/2023 13:39 Exam Location: [facility] Ht (in): 74 Wt (lb): 209 Ordering Physician: Jailyn Robb MD ([id number]) Attending/Referring Phys: Manager Of Radiology Jasmina Rodas RDCS Procedure CPT: Indications: CAD Cardiac Hx: Technical Quality: Technically difficult study Contrast 1: Definity Total Dose (mL): 2 Contrast 2: Total Dose (mL): MEASUREMENTS (Male / Female) Normal Values 2D ECHO LV Diastolic Diameter PLAX 4.2 cm 4.2 - 5.9 / 3.9 - 5.3 cm LV Systolic Diameter PLAX 3.1 cm IVS Diastolic Thickness 1.4 cm 0.6 - 1.0 / 0.6 - 0.9 cm LVPW Diastolic Thickness 1.3 cm 0.6 - 1.0 / 0.6 - 0.9 cm LV Relative Wall Thickness 0.6 RV Internal Dim ED PLAX 3.0 cm LA Volume 21.8 cm??? 18 - 58 / 22 - 52 cm??? LA Volume Index 9.7 cm???/m??? 16 - 28 cm???/m??? M-MODE Aortic Root Diameter MM 3.5 cm LA Systolic Diameter MM 2.0 cm LA Ao Ratio MM 0.6 AV Cusp Separation MM 1.5 cm DOPPLER AV Peak Velocity 111.7 cm/s AV Peak Gradient 5.0 mmHg AV Mean Velocity 79.3 cm/s AV Mean Gradient 2.7 mmHg AV Velocity Time Integral 20.8 cm LVOT Peak Velocity 100.2 cm/s LVOT Peak Gradient 4.0 mmHg LVOT Velocity Time Integral 18.7 cm MV Area PHT 3.7 cm??? Mitral E Point Velocity 73.7 cm/s Mitral A Point Velocity 96.0 cm/s Mitral E to A Ratio 0.8 MV Deceleration Time 207.2 ms TR Peak Velocity 223.8 cm/s TR Peak Gradient 20.0 mmHg Right Ventricular Systolic Press 25.0 mmHg FINDINGS Left Ventricle Mildly increased left ventricular wall thickness. Left ventricular cavity size normal. Normal left ventricular systolic function with no obvious regional wall motion abnormalities. Left ventricular ejection fraction is estimated at 55-60 %. Right Ventricle Normal right ventricular size and function. Right ventricular systolic pressure within normal limits. Right Atrium Normal right atrial size. Left Atrium Normal left atrial size. Mitral Valve Structurally normal mitral valve. No mitral stenosis, regurgitation or prolapse. Aortic Valve Trileaflet aortic valve. No aortic valve stenosis or regurgitation. Tricuspid Valve Mild tricuspid regurgitation.structurally normal tricuspid valve. Pulmonic Valve Structurally normal pulmonic valve. Pericardium No pericardial effusion. Aorta Normal size aortic root and proximal ascending aorta. CONCLUSIONS 1. Normal left ventricular size and systolic function 2. Mild tricuspid regurgitation with normal pulmonary pressure Previewed by: Dr. Jailyn Robb MD (Electronically Signed) Final Date: 28 April 2023 06:58
[2023-04-28 07:00] LABS: HCT 42.3 % (39.0-53.0); HGB 14.4 gm/dL (13.0-17.5); MCH 32.3 pg (25.0-35.0); MCHC 34.1 g/dL (31.0-37.0); MCV 94.7 fL (80.0-100.0); Mean Platelet Volume 7.5; Platelet Count 175 k/uL (150-450); RBC 4.47 m/uL (4.30-5.90); RDW 13.4 % (11.5-15.5); WBC 10.4 k/uL (3.8-10.6)
[2023-04-28 07:36] LABS: African American GFR (CKD) >90 (>60 ml/min/1.73 sqM); Anion Gap 10 mmol/L; Blood Urea Nitrogen 16 mg/dL (9-20); Calcium 8.5 mg/dL (8.4-10.2); Carbon Dioxide 23 mmol/L (22-30); Chloride 106 mmol/L (98-107); Glucose 122 mg/dL (74-99); Non-African American GFR(CKD) 86 (>60 ml/min/1.73 sqM); Potassium 3.1 mmol/L (3.5-5.1); Sodium 139 mmol/L (137-145)
[2023-04-28 08:37] VITALS: BMI 26.8
[2023-04-28] MEDS ORDERED: POTASSIUM CHLORIDE ER 20 MEQ TAB.ER PO STA (08:54)
[2023-04-28] MEDS: METOPROLOL TARTRATE 25 MG TAB PO SCH ×2 (08:55→20:27)
[2023-04-28] MEDS: ATORVASTATIN 40 MG TAB PO SCH (08:55)
[2023-04-28] MEDS: ASPIRIN 81 MG PO SCH (08:56)
[2023-04-28] MEDS: CLOPIDOGREL 75 MG TAB PO SCH (08:56)
[2023-04-28] MEDS: SODIUM CHLORIDE 0.9% 1,000 ML IV SCH (08:56)
[2023-04-28] MEDS ORDERED: ASPIRIN 325 MG TAB PO SCH (09:00)
[2023-04-28] MEDS ORDERED: ASPIRIN 81 MG PO SCH (09:00)
--- NOTE | 2023-04-28 09:06 | P.PN ---
Subjective Progress Note Date: 04/28/23 PROGRESS NOTE The patient is a 78-year-old male with known history of hypertension and hyperlipidemia who presented with chest discomfort and EKG changes but no enzymatic abnormalities. He underwent cardiac catheterization and was found to have severe stenosis in the left circumflex with moderate disease in the mid RCA. He underwent stenting of the left circumflex. Last night he had episodes of paroxysmal atrial fibrillation home he is back in sinus mechanism at this time. He does not feel any palpitations this morning. He has no recurrent chest discomfort. He denies any dyspnea. Hemodynamically he is stable. He was started on IV heparin and IV Cardizem. Medications: Aspirin, Lipitor 40 mg daily, Plavix 75 mg daily, metoprolol 25 mg twice a day. IV heparin, IV Cardizem. PHYSICAL EXAMINATION: Blood pressure 104/60 heart rate 70 LUNGS: Clear to auscultation HEART: Regular rate and rhythm, S1, S2. No S3. Systolic ejection murmur ABDOMEN: Soft, nontender, no organomegaly EXTREMETIES: No edema, right radial pulse intact. LAB: Potassium 3.1, BUN 16, creatinine 0.81. EKG shows atrial fibrillation with nonspecific ST-T wave changes subsequently back in sinus mechanism with no ST segment changes. IMPRESSION: 1. Unstable angina status post stenting of the left circumflex 2. Paroxysmal atrial fibrillation, back in sinus mechanism, could be worsened by the hypokalemia. 3. Moderate disease in the RCA 4. Hypertension 5. Hyperlipidemia PLAN: 1. Replace potassium 2. Stop IV Cardizem and IV heparin 3. Start oral anticoagulation 4. Continue dual antiplatelet treatment 5. Increase physical activity and if stable probable discharge home tomorrow. Objective - Vital Signs Vital signs: Vital Signs Temp 98.5 F 04/28/23 07:00 Pulse 100 04/28/23 07:00 Resp 17 04/28/23 07:00 BP 104/67 04/28/23 07:00 Pulse Ox 95 04/28/23 07:00 FiO2 Intake & Output 04/27/23 04/28/23 04/28/23 18:59 06:59 18:59 Intake Total 200 Balance 200 Weight 94.801 kg 94.801 kg Intake: IV 200 Other: Voiding Method Toilet Toilet # Voids 1 1 - Labs CBC & Chem 7: 04/28/23 06:34 04/28/23 06:34 Labs: Abnormal Lab Results - Last 24 Hours (Table) 04/27/23 04/28/23 04/28/23 Range/Units 13:21 06:34 06:34 APTT 52.7 H (22.0-30.0) sec Potassium 3.2 L 3.1 L (3.5-5.1) mmol/L BUN 23 H (9-20) mg/dL Glucose 110 H 122 H (74-99) mg/dL
[2023-04-28] MEDS ORDERED: POTASSIUM BICARBONATE/CIT AC 20 MEQ TABLET.EFF PO ONE (09:30)
[2023-04-28] MEDS: APIXABAN 5 MG TAB PO SCH ×2 (09:38→20:27)
[2023-04-28 11:30] LABS: Chol/HDL Ratio 1.93 Ratio; LDL Cholesterol,Calculated 53.1 mg/dL (0.0-131.0)
--- NOTE | 2023-04-28 15:55 | P.PN ---
Subjective Progress Note Date: 04/28/23 (delayed charting seen at 0830) Patient is a 78-year-old male with a history of hypertension and dyslipidemia who presented to the emergency department with complaints of chest pain. In the emergency department he underwent an extensive evaluation. On arrival he was hypertensive with a blood pressure 161/76. Labs in the emergency department included CBC, coags, d-dimer, BMP, liver enzymes, magnesium, troponin, and B and P which are remarkable for potassium 2.8, BUN 26, glucose 126, magnesium 1.8. Initial troponin was negative at less than 0.012. Chest x-ray showed no acute process. CT of the chest revealed no pulmonary embolism. He was given a dose of aspirin and tylenol and arrangements were made for admission. He was seen by cardiology and subsequently underwent cardiac catheterization which showed severe stenosis of OM1 which was successfully stented. He was started on aspirin and Plavix. Will monitor overnight on 04/27 the patient went into atrial fibrillation with rapid ventricular response was subsequently started on a heparin drip and IV Cardizem. He converted to normal sinus rhythm on the morning of 04/28. Echocardiogram showed ejection fraction 55-60%, mild tricuspid regurgitation. Patient seen and examined at bedside. He did have some palpitations last night. He denies any overt chest pain, shortness breath, nausea, vomiting with present at bedside and all questions answered. Vital signs reviewed General: nontoxic, no distress, appears at stated age Cardiovascular: S1S2 reg, no murmur, positive posterior tibial pulse bilateral, Lungs: CTA bilateral, no rhonchi, no rales , no accessory muscle use Abdominal: soft, nontender to palpation, no guarding, no appreciable organomegaly Ext: no gross muscle atrophy, no edema b/l lower extremities, no contractures Neuro: CN II-XI grossly intact, no focal neuro deficits Psych: Alert, oriented, appropriate affect Assessment/Plan: Unstable ANgina due to CAD s/p PCI to OM1 Paroxysmal atrial fibrillation with rapid ventricular response HTN HLD -Aspirin 81 mg daily, Plavix 75 mg daily, Lipitor 40 mg daily -DC heparin drip and Cardizem drip -Continue with metoprolol 25 mg by mouth twice daily start Eliquis hive milligrams twice daily -Cardiology note reviewed: Increase physical activity, possible discharge tomorrow, they agreed with plan as outlined above. -Continue with telemetry Hypokalemia - potassium bicarbonate 40 mEq by mouth 1 -Await magnesium level -Check BMP and magnesium in a.m. Imaging: Echocardiogram: Normal left ventricular size and systolic function with ejection fraction 55-60% and mild tricuspid regurgitation Data Review: Labs reviewed from today include CBC, cholesterol, and basic metabolic profile which are remarkable for potassium of 3.1, and HDL 71. DVT prophylaxis: Eliquis Anticipated discharge date: In a.m. Anticipated discharge place: Home This dictation was prepared using [employer] voice recognition software. Though every attempt is made to correct errors during dictation some may still exist. Objective - Vital Signs Vital signs: Vital Signs Temp 98.0 F 04/28/23 13:57 Pulse 75 04/28/23 13:57 Resp 17 04/28/23 13:57 BP 131/66 04/28/23 13:57 Pulse Ox 95 04/28/23 13:57 FiO2 Intake & Output 04/27/23 04/28/23 04/28/23 18:59 06:59 18:59 Intake Total 200 Balance 200 Weight 94.801 kg 94.801 kg Intake: IV 200 Other: Voiding Method Toilet Toilet # Voids 1 1 2 # Bowel Movements 1 - Labs CBC & Chem 7: 04/28/23 06:34 04/28/23 06:34 Labs: Abnormal Lab Results - Last 24 Hours (Table) 04/28/23 04/28/23 04/28/23 Range/Units 06:34 06:34 06:34 APTT 52.7 H (22.0-30.0) sec Potassium 3.1 L (3.5-5.1) mmol/L Glucose 122 H (74-99) mg/dL HDL Cholesterol 71.00 H (40.00-60.00) mg/dL
[2023-04-28 16:03] LABS: Magnesium 1.9 mg/dL (1.5-2.4)
[2023-04-29] MEDS: SODIUM CHLORIDE 0.9% 1,000 ML IV SCH (00:39)
[2023-04-29 06:22] LABS: African American GFR (CKD) >90 (>60 ml/min/1.73 sqM); Anion Gap 10 mmol/L; Blood Urea Nitrogen 15 mg/dL (9-20); Calcium 8.8 mg/dL (8.4-10.2); Carbon Dioxide 25 mmol/L (22-30); Chloride 105 mmol/L (98-107); Glucose 91 mg/dL (74-99); Non-African American GFR(CKD) 81 (>60 ml/min/1.73 sqM); Potassium 3.4 mmol/L (3.5-5.1); Sodium 140 mmol/L (137-145)
[2023-04-29 07:48] VITALS: BP 148/81; PULSE 80; RESP 17; TEMP 98.2
[2023-04-29] MEDS ORDERED: POTASSIUM CHLORIDE ER 20 MEQ TAB.ER PO STA (08:09)
[2023-04-29] MEDS: ATORVASTATIN 40 MG TAB PO SCH (08:22)
[2023-04-29] MEDS: ASPIRIN 81 MG PO SCH (08:22)
[2023-04-29] MEDS: APIXABAN 5 MG TAB PO SCH (08:22)
[2023-04-29] MEDS: CLOPIDOGREL 75 MG TAB PO SCH (08:22)
[2023-04-29] MEDS: METOPROLOL TARTRATE 25 MG TAB PO SCH (08:57)
--- NOTE | 2023-04-29 08:59 | P.PN ---
Subjective HISTORY OF PRESENT ILLNESS: Patient examined this morning at the bedside. Patient is status post cardiac catheterization with stenting of the left circumflex. Patient denies any chest pain or pressure. He denies any shortness of breath. Telemetry reveals sinus mechanism with a heart rate in the 70s. He denies any dizziness or lightheadedness. Denies any palpitations. He states he has been up ambulating in his room without difficulty. Vital signs are stable. Potassium today 3.4. PHYSICAL EXAM: VITAL SIGNS: Reviewed. GENERAL: Well-developed in no acute distress. NECK: Supple. No JVD or thyromegaly LUNGS: Respirations even and unlabored. Lungs essentially clear to auscultation bilaterally. HEART: Regular rate and rhythm. S1 and S2 heard. EXTREMITIES: Normal range of motion. No clubbing or cyanosis. Peripheral pulses intact. No lower extremity edema ASSESSMENT: Unstable angina, status post cardiac catheterization with stenting of the left circumflex and also revealing moderate disease of the RCA Paroxysmal atrial fibrillation, currently maintaining sinus mechanism Hypokalemia Hypertension Hyperlipidemia Borderline diabetes PLAN: Continue triple therapy with Eliquis, aspirin, and Plavix. Aspirin will be discontinued at his follow-up appointment with Dr. Robb Replace potassium Continue additional cardiac medications Patient may be discharged home today from a cardiac standpoint He is to follow up in office with Dr. Robb in 1 week Patient to have BMP drawn in 3 days. Lab prescription provided. Nurse practitioner note has been reviewed by physician. Signing provider agrees with the documented findings, assessment, and plan of care. Objective - Vital Signs Vital signs: Vital Signs Temp 98.2 F 04/29/23 07:23 Pulse 80 04/29/23 07:23 Resp 17 04/29/23 07:23 BP 148/81 04/29/23 07:23 Pulse Ox 94 L 04/29/23 07:23 FiO2 Intake & Output 04/28/23 04/29/23 04/29/23 18:59 06:59 18:59 Weight 94.801 kg Other: Voiding Method Toilet # Voids 2 2 # Bowel Movements 1 - Labs CBC & Chem 7: 04/28/23 06:34 04/29/23 05:28 Labs: Abnormal Lab Results - Last 24 Hours (Table) 04/28/23 04/29/23 Range/Units 06:34 05:28 Potassium 3.4 L (3.5-5.1) mmol/L HDL Cholesterol 71.00 H (40.00-60.00) mg/dL
--- NOTE | 2023-04-29 10:21 | P.DS ---
Providers Date of admission: 04/28/23 08:53 Expected date of discharge: 04/29/23 Attending physician: Laura Swanson MD Consults: 04/27/23 06:35 Consult Physician Urgent Consulting Provider: Jailyn Robb Consult Reason/Comments: cp Do you want consulting provider notified?: Yes 04/27/23 09:58 Consult Physician Routine Consulting Provider: [facility] Consult Reason/Comments: Post Interventional patient Do you want consulting provider notified?: Already Contacted Primary care physician: Jose Andrew MD Hospital Course: Discharge Diagnosis: Unstable Angina due to CAD s/p PCI to OM1 Paroxysmal atrial fibrillation with rapid ventricular response HTN HLD Hypokalemia Hospital Course: Patient is a 78-year-old male with a history of hypertension and dyslipidemia who presented to the emergency department with complaints of chest pain. In the emergency department he underwent an extensive evaluation. On arrival he was hypertensive with a blood pressure 161/76. Labs in the emergency department included CBC, coags, d-dimer, BMP, liver enzymes, magnesium, troponin, and B and P which are remarkable for potassium 2.8, BUN 26, glucose 126, magnesium 1.8. Initial troponin was negative at less than 0.012. Chest x-ray showed no acute process. CT of the chest revealed no pulmonary embolism. He was given a dose of aspirin and tylenol and arrangements were made for admission. He was seen by cardiology and subsequently underwent cardiac catheterization which showed severe stenosis of OM1 which was successfully stented. He was started on aspirin and Plavix. Will monitor overnight on 04/27 the patient went into atrial fibrillation with rapid ventricular response was subsequently started on a heparin drip and IV Cardizem. He converted to normal sinus rhythm on the morning of 04/28. Echocardiogram showed ejection fraction 55-60%, mild tricuspid regurgitation. He did struggle with hypokalemia throughout his hospital stay which was felt to be secondary to his chlorthalidone on admission. This did approach normal on day of discharge at 3.4. He continued to do well. He was de termined stable for discharge home. Follow-up: Dr. Robb in 1 week, Dr. Andrew in 2-3 days. Medications include Eliquis 5 mg twice daily, metoprolol 25 mg twice daily, Plavix 75 mg daily. Discontinue medications are atenolol/chlorothiazide. Patient should have basic metabolic profile repeated in 3 days Patient seen and examined at bedside. He is doing well. No complaints. at bedside and all questions answered. Vital signs reviewed and stable. General: nontoxic, no distress, appears at stated age Cardiovascular: S1S2 reg, no murmur, positive posterior tibial pulse bilateral, Lungs: CTA bilateral, no rhonchi, no rales , no accessory muscle use Abdominal: soft, nontender to palpation, no guarding, no appreciable organomegaly Ext: no gross muscle atrophy, no edema b/l lower extremities, no contractures Neuro: CN II-XI grossly intact, no focal neuro deficits Psych: Alert, oriented, appropriate affect A total of 32 minutes of time were spent preparing this complex discharge summary. Patient was discharged on 04/29/23. This dictation was prepared using [employer] voice recognition software. Though every attempt is made to correct errors during dictation some may still exist. Patient Condition at Discharge: Undetermined Plan - Discharge Summary Discharge Rx Participant: No New Discharge Prescriptions: New Apixaban [Eliquis] 5 mg PO BID #60 tab Metoprolol Tartrate [Lopressor] 25 mg PO BID #60 tab Nitroglycerin Sl Tabs [Nitrostat] 0.4 mg SUBLINGUAL Q5M PRN #100 tab PRN Reason: Chest Pain Clopidogrel [Plavix] 75 mg PO DAILY #90 tab Continue Multivitamin [Men's Multi-Vitamin] 1 tab PO DAILY Aspirin 81 mg PO DAILY Rosuvastatin [Crestor] 20 mg PO DAILY Discontinued Atenolol/Chlorthalidone [Atenolol/Chlorthalidone 50-25] 1 tab PO DAILY Discharge Medication List Aspirin 81 mg PO DAILY 02/07/14 [History] Multivitamin [Men's Multi-Vitamin] 1 tab PO DAILY 02/07/14 [History] Rosuvastatin [Crestor] 20 mg PO DAILY 04/27/23 [History] Apixaban [Eliquis] 5 mg PO BID #60 tab 04/29/23 [Rx] Clopidogrel [Plavix] 75 mg PO DAILY #90 tab 04/29/23 [Rx] Metoprolol Tartrate [Lopressor] 25 mg PO BID #60 tab 04/29/23 [Rx] Nitroglycerin Sl Tabs [Nitrostat] 0.4 mg SUBLINGUAL Q5M PRN #100 tab 04/29/23 [Rx] Follow up Appointment(s)/Referral(s): Jailyn Robb MD [STAFF PHYSICIAN] - 1 Week (Office will call with appointment time and date.) Jose Andrew MD [Primary Care Provider] - 1-2 days Ambulatory/Diagnostic Orders: Basic Metabolic Panel [LAB.AMB] Time Frame: 3 Days, Location: None Selected Basic Metabolic Panel [LAB.AMB] Time Frame: 3 Days, Location: None Selected Basic Metabolic Panel [LAB.AMB] Time Frame: 3 Days, Location: None Selected Activity/Diet/Wound Care/Special Instructions: Activity: As tolerated Diet: Heart Healthy Special Instructions: Monitor your blood pressure daily at home and make a log Discharge Disposition: HOME SELF-CARE
== END 2023-04-29 11:05 | disposition home or self-care (01) | DRG 322 ==
LOC: EC 02:01 → 6NMEDSUR 06:35 → OBSVTOIN 04-28 08:53
PROVIDERS: ADMIT Internal Medicine; ATTEND Internal Medicine
PROC: 6A750Z5 Ultrasound Therapy of Heart, Single (ICD-10-PCS; 2023-04-27)
PROC: 027034Z Dilation of Coronary Artery, One Artery with Drug-eluting Intraluminal Device, Percutaneous Approach (ICD-10-PCS; principal; 2023-04-27 12:30)
PROC: 4A023N7 Measurement of Cardiac Sampling and Pressure, Left Heart, Percutaneous Approach (ICD-10-PCS; 2023-04-27 12:30)
PROC: B2111ZZ Fluoroscopy of Multiple Coronary Arteries using Low Osmolar Contrast (ICD-10-PCS; 2023-04-27 12:30)
DX: I25.110 Atherosclerotic heart disease of native coronary artery with unstable angina pectoris (principal); I48.0 Paroxysmal atrial fibrillation; I10 Essential (primary) hypertension; E78.5 Hyperlipidemia, unspecified; E83.42 Hypomagnesemia; E87.6 Hypokalemia; I07.1 Rheumatic tricuspid insufficiency; R73.03 Prediabetes; Z87.891 Personal history of nicotine dependence; Z28.310 Unvaccinated for COVID-19; Z79.82 Long term (current) use of aspirin; Z79.899 Other long term (current) drug therapy; Z82.49 Family history of ischemic heart disease and other diseases of the circulatory system
CPT/HCPCS: 36415; 71046; 71275; 80048; 80053; 80061; 83735; 83880; 84443; 84484; 85025; 85027; 85379; 85610; 85730; 92978; 93005; 93306; 93458; 96365; 99285

== ENCOUNTER → 2023-05-01 | Outpatient (CLI) | payer MEDICARE ==
[2023-05-01 16:03] LABS: BUN/Creat Ratio 17.18 Ratio (12.00-20.00); Blood Urea Nitrogen 18.9 mg/dL (9.0-27.0); Calcium 9.4 mg/dL (8.7-10.3); Carbon Dioxide 25.9 mmol/L (21.6-31.8); Chloride 104 mmol/L (96-109); Glucose 97 mg/dL (70-110); Potassium 3.7 mmol/L (3.5-5.5); Sodium 141 mmol/L (135-145)
== END | disposition home or self-care (01) ==
LOC: LABWHC1 07:50
PROVIDERS: ATTEND Internal Medicine Interventional Cardiology
DX: E87.6 Hypokalemia (principal)
CPT/HCPCS: 36415; 80048

== ENCOUNTER → 2023-08-05 | Outpatient (CLI) | payer MEDICARE ==
[2023-08-05 15:28] LABS: ALT 21 U/L (10-49); AST 21 U/L (14-35); Albumin 4.4 g/dL (3.8-4.9); Albumin/Globulin Ratio 1.63 Ratio (1.60-3.17); Alkaline Phosphatase 59 U/L (41-126); BUN/Creat Ratio 16.55 Ratio (12.00-20.00); Blood Urea Nitrogen 18.2 mg/dL (9.0-27.0); Calcium 9.7 mg/dL (8.7-10.3); Carbon Dioxide 26.3 mmol/L (21.6-31.8); Chloride 105 mmol/L (96-109); Chol/HDL Ratio 2.43 Ratio; Globulin 2.7 g/dL (1.6-3.3); Glucose 105 mg/dL (70-110); LDL Cholesterol,Calculated 75.9 mg/dL (0.0-131.0); Potassium 4.1 mmol/L (3.5-5.5); Sodium 142 mmol/L (135-145); Total Bilirubin 0.7 mg/dL (0.3-1.2); Total Protein 7.1 g/dL (6.2-8.2)
== END | disposition home or self-care (01) ==
LOC: LABWHC1 08:01
PROVIDERS: ATTEND Internal Medicine Interventional Cardiology
DX: E78.2 Mixed hyperlipidemia (principal)
CPT/HCPCS: 36415; 80053; 80061

== ENCOUNTER → 2023-12-30 | Outpatient (CLI) | payer MEDICARE ==
[2023-12-30 15:48] LABS: ALT 21 U/L (10-49); AST 23 U/L (14-35); Albumin 4.3 g/dL (3.8-4.9); Albumin/Globulin Ratio 1.87 Ratio (1.60-3.17); Alkaline Phosphatase 53 U/L (41-126); Blood Urea Nitrogen 25.2 mg/dL (9.0-27.0); Calcium 9.5 mg/dL (8.7-10.3); Carbon Dioxide 24.9 mmol/L (21.6-31.8); Chloride 105 mmol/L (96-109); Chol/HDL Ratio 2.77 Ratio; Globulin 2.3 g/dL (1.6-3.3); Glucose 118 mg/dL (70-110); LDL Cholesterol,Calculated 76.3 mg/dL (0.0-131.0); Potassium 3.7 mmol/L (3.5-5.5); Sodium 141 mmol/L (135-145); Total Bilirubin 0.6 mg/dL (0.3-1.2); Total Protein 6.6 g/dL (6.2-8.2)
== END | disposition home or self-care (01) ==
LOC: LABWHC1 07:44
PROVIDERS: ATTEND Internal Medicine Interventional Cardiology
DX: E78.2 Mixed hyperlipidemia (principal)
CPT/HCPCS: 36415; 80053; 80061

== ENCOUNTER → 2024-02-04 | Outpatient (CLI) | payer MEDICARE | END | disposition home or self-care (01) | LOC: LABWHC1 07:44 | PROVIDERS: ATTEND Nurse Practitioner Adult Health | DX: E78.2 Mixed hyperlipidemia (principal) | CPT/HCPCS: 36415; 80061; 84450; 84460 ==

== ENCOUNTER → 2024-08-30 | Outpatient (CLI) | payer MEDICARE ==
--- NOTE | 2024-08-30 09:44 | XR ---
EXAMINATION TYPE: XR hand complete RT DATE OF EXAM: 08/30/2024 9:39 AM COMPARISON: 08/30/2024. CLINICAL INDICATION: Male, 79 years old with history of M65.331 TRIGGER FINGER, RIGHT MIDDLE FINGER; PHH, pain TECHNIQUE: XR hand complete RT 3 views were obtained. FINDINGS: Normal alignment of the visualized joints. No acute osseous pathology is identified. No e vidence of soft tissue swelling. Multifocal degeneration changes with joint space narrowing and osteo phyte formation. IMPRESSION: 1. No acute osseous pathology. 2. Multifocal osteoarthrosis throughout the joints of the hand. [facility], , 08/30/2024 9:42 AM
== END | disposition home or self-care (01) ==
LOC: RADXRMAIN 09:11
PROVIDERS: ATTEND Internal Medicine
DX: M19.041 Primary osteoarthritis, right hand (principal); M65.331 Trigger finger, right middle finger

== ENCOUNTER → 2024-09-21 | Outpatient (CLI) | payer MEDICARE ==
[2024-09-21 10:55] LABS: ALT 30 U/L (10-49); AST 30 U/L (14-35); Albumin/Globulin Ratio 1.43 Ratio (1.60-3.17); Alkaline Phosphatase 59 U/L (41-126); BUN/Creat Ratio 18.33 Ratio (12.00-20.00); Calcium 9.3 mg/dL (8.7-10.3); Carbon Dioxide 25.8 mmol/L (21.6-31.8); Chloride 101 mmol/L (96-109); Globulin 2.8 g/dL (1.6-3.3); Glucose 115 mg/dL (70-110); LDL Cholesterol,Calculated 78.4 mg/dL (0.0-131.0); Potassium 3.5 mmol/L (3.5-5.5); Sodium 139 mmol/L (135-145); Total Bilirubin 0.7 mg/dL (0.3-1.2); Total Protein 6.8 g/dL (6.2-8.2)
== END | disposition home or self-care (01) ==
LOC: LABWHC1 07:54
PROVIDERS: ATTEND Internal Medicine Interventional Cardiology
DX: I10 Essential (primary) hypertension (principal); E78.2 Mixed hyperlipidemia
CPT/HCPCS: 36415; 80053; 80061